=== PATIENT | female | born 1995 | race Caucasian/White ===

== ENCOUNTER 2016-11-20 12:12 | Outpatient (CLI) | payer MEDICAID ==
[~2016-11-20] VITALS: Ht 160 cm; Wt 77.9 kg
[2016-11-20 12:16] VITALS: Ht 160 cm; Wt 77.9 kg
[2016-11-20 12:22] VITALS: BP 126/71; PULSE 76; RESP 18
[2016-11-20] MEDS ORDERED: LACTATED RINGER'S 1,000 ML IV ONE (12:30)
[2016-11-20] MEDS ORDERED: LACTATED RINGER'S 1,000 ML IV SCH (13:30)
--- NOTE | 2016-11-20 13:59 | RADRPT ---
PROCEDURE: US OB biophysical profile. CLINICAL INDICATION: evaluation, oligohydramnios TECHNIQUE: Multiple sonographic images of the pelvis were obtained. The images were reviewed on a PACS workstation. COMPARISON: No prior studies are available for comparison. FINDINGS: There is a single viable intrauterine gestation. Cardiac activity is present with 136 beats per min shannen. There is a vertex presentation. The placenta is left lateral in location. There is no evidence of placental abruption. There is a normal amount of amniotic fluid with an KEENA = 9.0 cm. Biophysical profile: movement 2/2 tone 2/2. breathing 2/2 KEENA 2/2 Total 04/23 RPTAT: AA . IMPRESSION: Normal biophysical profile. Normal KEENA of 9.0 cm. Physician Bethanie Date Time Electronically viewed and signed by Physician Bethanie on 11/20/2016 13:58 /
--- NOTE | 2016-11-20 15:14 | TRIAGE ---
OB Triage Datetime Report Generated by CPN: 11/20/2016 15:14 Datetime: 11/20/2016 15:00 Maternal Assessment Level of Consciousness: Fully Conscious Labor Evaluation Frequency: OCC Monitor Mode: External Duration (sec)2399: 60-80 Quality: Mild Pattern: Normal: <= 5 Contractions in 10 Minutes Resting Tone [place]: Relaxed Heart Rate FHR Baseline Rate: 135 Monitor Mode: External US FHR Baseline Changes: No Baseline Change Variability: Moderate 6-25 bpm Accelerations: 15X15 Decelerations: None Pain Assessment Pain Scale: 0 Pain Presence: None/Denies Pain Goal: 0 Vaginal Exam Membrane Status: Intact Vaginal Bleeding: None Datetime: 11/20/2016 14:00 Labor Evaluation Frequency: OCC Monitor Mode: External Quality: Mild Pattern: Normal: <= 5 Contractions in 10 Minutes Resting Tone [place]: Relaxed Heart Rate FHR Baseline Rate: 140 Monitor Mode: External US FHR Baseline Changes: No Baseline Change Variability: Moderate 6-25 bpm Accelerations: 15X15 Decelerations: None Category: Category I Pain Presence: None/Denies Pain Assessment Comments: Pt denies feeling pain with contractions Datetime: 11/20/2016 13:00 Maternal Assessment Level of Consciousness: Fully Conscious DTR's/Clonus: DTRs 1+ Headache: Denies Blurred Vision: No Respiratory Effort: Unlabored Breath Sounds, Left: Clear and Equal Breath Sounds, Right: Clear and Equal Nausea/Vomiting: Denies RUQ Epigastric Pain: Denies Facial Edema: None Labor Evaluation Frequency: OCC Monitor Mode: External Duration (sec)2399: 20-40 Quality: Mild Pattern: Normal: <= 5 Contractions in 10 Minutes Resting Tone [place]: Relaxed Heart Rate FHR Baseline Rate: 145 Monitor Mode: External US FHR Baseline Changes: No Baseline Change Accelerations: 15X15 Decelerations: None Category: Category I Pain Assessment Pain Scale: 0 Pain Presence: None/Denies Pain Type: N/A Pain Goal: 3 Vaginal Exam Membrane Status: Intact Datetime: 11/20/2016 12:25 Stage of : OB Triage Maternal Assessment Level of Consciousness: Fully Conscious DTR's/Clonus: DTRs 2+; No Clonus Headache: Denies Blurred Vision: No Respiratory Effort: Unlabored; Regular Rhythm; Equal Expansion Breath Sounds, Left: Clear and Equal Breath Sounds, Right: Clear and Equal Nausea/Vomiting: Denies RUQ Epigastric Pain: Denies Lower Extremities Edema: None Degree: None Upper Extremities Edema: None Degree: None Facial Edema: None Temperature Route: Axillary Fall Risk Assessment History of Falling: (0) No Secondary Diagnosis: (0) No Ambulatory Aid: (0) Bedrest/Nurse Assist IV Therapy: (0) No Gait: (0) Normal/Bedrest/Immobile Mental Status: (0) Oriented to Own Ability Fall Score: 0 Fall Risk Score Definition: No Risk: No action required Datetime: 11/20/2016 12:21 Temperature Route: Oral Datetime: 11/20/2016 12:15 Stage of : OB Triage Datetime: 11/20/2016 12:10 Time of Arrival: 11/20/2016 12:10 EGA: 37.4 Arrived By: Ambulatory Arrived From: Other Unit in Hospital Chief Complaint: PT CAME IN FROM [facility] FOR [facility] (6.2CM) Movement: Present Contractions: Denies/Absent Rupture of Membranes: Denies Vaginal Bleeding: None Vaginal Discharge: Denies Recent Sexual Intercouse: Denies Abdominal Trauma: Not Applicable Patient Complaints: None Additional Patient Complaints: NONE Time Provider Notified: 11/20/2016 12:10 Provider Notified: ALONZO Initial Plan: [facility], IV HYDRATION AND REPERAT BPP
--- NOTE | 2016-11-20 15:23 | CONS ---
Date/Time of Note Date/Time of Note DATE: 11/20/16 TIME: 15:14 Consultation Date/Type/Reason Admit Date/Time November 20, 2016 OB triage consult Initial Consult Date Reason for Consultation This patient is a 21 years old 1 para 0 with estimated date of confinement of December 07, 2016, which makes her 37 weeks and 4 days now An ultrasound study in the clinic gave the amniotic fluid index of 6.2 cm for this reason she was sent to OB triage for further evaluation . On exam abdomen is soft she is having occasional contraction baby is in vertex presentation heart tone is normal with good variability and acceleration no evidence of decelerations IV hydration was given and contractions slowed down . Ultrasound study: her biophysical profile was reported 04/23 and KEENA of 9 after hydration Her vital signs were overall within normal limits: her blood pressure 126/71 pulse rate 76 respiration 18 temperature 98.2 Disposition.: She will be discharged home to be followed in the [facility] in 3 days 24 HR Interval Summary Constitutional: No chills, No diaphoresis, No disoriented, No febrile, No improved, No no complaints, No other, No poor po, No requiring IVF, No requiring O2 Detailed Summary Eyes: no complaints (Irregular contractions) ENT: No bleeding, No congestion, No discharge, No dysphagia, No no complaints, No other, No pain, No sore throat Respiratory: No cough, No no complaints, No other, No pain, No pleuritic pain, No shortness of breath, No sputum, No wheezing Cardiovascular: No chest pain, No edema, No lightheadedness, No no complaints, No orthopenea, No other, No palpitations, No paroxysmal nocturnal dyspnea Genitourinary: other, No bleeding, No discharge, No dysuria, No flank pain, No hematuria, No no complaints Musculoskeletal: No back pain, No bone/joint pain, No neck pain, No no complaints, No other, No restricted range of motion, No swelling Skin: No bruising, No erythema, No laceration, No no complaints, No other, No pruritis, No rash, No skin lesions Neurologic: No confusion, No dizziness, No focal-weakness, No headache, No no complaints, No other, No seizure, No syncope Endocrine: No dry skin, No no complaints, No other, No polydypsia, No polyuria , No temp intolerance Exam/Review of Systems Vital Signs Vitals Vital Signs Date Time Temp Pulse Resp B/P Pulse Ox O2 Delivery O2 Flow Rate FiO2 11/20/16 12:22 98.2 76 18 126/71 Room Air Medications Medications Current Medications Lactated Ringer's (Lr) 1,000 ml @ 125 mls/hr Q8H IV Last administered on t 14:07; Admin Dose 125 MLS/HR; Start 11/20/16 at 13:30 KAYLYNN CUBA MD Nov 20, 2016 15:23
== END 2016-11-20 15:15 | disposition home or self-care (01) ==
LOC: OBT 12:12 → L-D 12:14 → OBT 15:15
PROVIDERS: ATTEND Obstetrics & Gynecology
DX: O41.03X0 Oligohydramnios, third trimester, not applicable or unspecified (principal); Z3A.37 37 weeks gestation of pregnancy
CPT/HCPCS: 36415; 76818; 96360; 96361; J7120; Z7500; G0463